=== PATIENT | female | born 1985 | race Caucasian/White ===

== ENCOUNTER 2017-12-28 16:04 | Emergency (ER) | payer OTHER ==
[~2017-12-28] VITALS: Ht 152.4 cm; Wt 73.5 kg
[2017-12-28 16:08] VITALS: Ht 152.4 cm; Wt 73.5 kg
[2017-12-28 17:32] VITALS: BP 110/70
== END 2017-12-28 17:32 | disposition home or self-care (01) ==
LOC: ED 16:04
DX: M54.16 Radiculopathy, lumbar region (principal)
CPT/HCPCS: J1885

== ENCOUNTER 2019-06-15 11:24 | Emergency (ER) | payer OTHER ==
[~2019-06-15] VITALS: Ht 149.9 cm; Wt 75.3 kg
[2019-06-15 11:28] VITALS: BP 114/80; Ht 149.9 cm; Wt 75.3 kg
== END 2019-06-15 13:16 | disposition home or self-care (01) ==
LOC: ED 11:24
DX: M25.562 Pain in left knee (principal); Z90.49 Acquired absence of other specified parts of digestive tract; W22.8XXA Striking against or struck by other objects, initial encounter; Y93.89 Activity, other specified; Y92.89 Other specified places as the place of occurrence of the external cause; Y99.8 Other external cause status